=== PATIENT | male | born 1940 | race Caucasian/White ===

== ENCOUNTER 2017-03-23 10:38 | Outpatient (CLI) | payer OTHER ==
[2017-03-23 11:20] LABS: eGFR (African) > 60; eGFR (Non-African) > 60
== END 2017-03-23 10:40 ==
LOC: LAB 10:38
PROVIDERS: ATTEND Family Medicine
DX: E11.9 Type 2 diabetes mellitus without complications (principal)
CPT/HCPCS: 36415; 80053; 80061; 83036

== ENCOUNTER 2017-04-24 08:25 | Day surgery (SDC) | payer OTHER ==
[~2017-04-24 08:25] MED LIST: LACTATED RINGERS 1,000 ML IV.SOLN IV ONE; PROPOFOL 200 MG/20 ML VIAL IV ONE; SALINE FLUSH 10 ML DISP.SYRIN IVF ONE
--- NOTE | 2017-04-25 10:35 | GI Report ---
REFERRING PHYSICIAN: Dr. Janene Foster GLAZIER STAINED GLASS: Beka Roberts MD PROCEDURE MEDICATION: Propofol as per anesthesia. INDICATIONS: This 77-year-old man is referred for a screening. He denies any change in his stools or blood in his stools. PROCEDURE PERFORMED: Colonoscopy. PROCEDURE: An Olympus video colonoscope was advanced to the rectum. 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 A few small diverticula were in the sigmoid colon. The colonoscope was slowly advanced all the way to the cecum. The appendiceal orifice and ileocecal valve were normal. On slow withdrawal, the cecum, ascending colon, and transverse colon had no obvious intraluminal lesions noted. The descending colon and sigmoid had a few small diverticula. Retroflexion of the rectum just shows the AV malformations. No polyps were seen. Patient tolerated the procedure well. FINDINGS: 1. 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 2. Mild diverticular disease in the sigmoid colon. RECOMMENDATIONS: 1. A high-fiber diet. 2. Consider re-looking at his colon in 10 years, sooner if clinically indicated. cc: Dr. Janene MONDRAGON
== END 2017-04-24 08:26 ==
LOC: OPSURG 08:25
PROVIDERS: ATTEND Internal Medicine Gastroenterology
DX: Z12.11 Encounter for screening for malignant neoplasm of colon (principal); Q27.33 Arteriovenous malformation of digestive system vessel; K57.30 Diverticulosis of large intestine without perforation or abscess without bleeding
CPT/HCPCS: J2704; J7120; G0121; S1016

== ENCOUNTER 2018-01-09 07:55 | Outpatient (CLI) | payer OTHER ==
[2018-01-09 11:39] LABS: MEAN CORPUSCULAR HEMOGLOBIN 30.2 pg (28.0-34.0)
[2018-01-09 11:59] LABS: eGFR (Non-African) > 60
--- NOTE | 2018-01-09 16:55 | Diagnostic Imaging Report ---
KALEE GRIJALVA [facility] [address] [facility].[address] [id number] Report Submission Date: Jan 09, 2018 9:47:54 AM CDT Patient Study Name: FAITH MEADOWS Date: Jan 09, 2018 8:22:44 AM CDT Modality Type: US Gender: M Description: RUQ : 40 Institution: [facility] Physician: KALEE GRIJALVA Right upper quadrant ultrasound History: Abdominal pain Transverse and longitudinal images were obtained through the right upper quadrant. The liver is inhomogeneous. There are at least 3 solid masses within the liver. The largest of these measures 5.3 x 4.4 x 4.7 cm in greatest dimension. The smallest mass measures 2.1 x 1.9 x 1.6 cm in greatest dimension. These solid masses are indeterminate by ultrasound. Metastatic disease would not be excluded. Either dedicated liver MRI or dedicated liver CT would be recommended for further assessment. The right kidney measures 9.7 cm in length and demonstrate normal corticomedullary distinction without hydronephrosis or evident mass. The gallbladder is normal without gallstones. The common duct is normal in caliber measuring 2.7 mm. Impression: Multiple indeterminate solid hepatic masses are present. Metastatic disease would not be excluded. Dedicated liver MRI or dedicated liver CT would be recommended for further assessment. Poor visualization of the pancreas. Normal gallbladder and normal common duct. Electronically signed on Jan 09, 2018 9:47:54 AM CDT by: Cecilia MONDRAGON
== END 2018-01-09 07:56 ==
LOC: RAD 07:55
PROVIDERS: ATTEND Family Medicine
DX: R10.13 Epigastric pain (principal); E11.9 Type 2 diabetes mellitus without complications
CPT/HCPCS: 36415; 76705; 80053; 83036; 85027